=== PATIENT | female | born 1960 | race Caucasian/White ===

== ENCOUNTER 2020-03-13 08:00 | Outpatient (CLI) | payer BC ==
[~2020-03-13 08:00] MED LIST: CITA10TA8 PO; OMEP40CA42 PO
== END 2020-03-13 23:59 | disposition home or self-care (01) ==
LOC: CFH 08:00
PROVIDERS: ATTEND Internal Medicine Cardiovascular Disease
DX: I08.0 Rheumatic disorders of both mitral and aortic valves (principal); I27.20 Pulmonary hypertension, unspecified; F17.200 Nicotine dependence, unspecified, uncomplicated
CPT/HCPCS: 93306